=== PATIENT | female | born 1945 | race African-American/Black ===

== ENCOUNTER 2021-05-12 14:50 | Inpatient (IN) | payer OTHER, MEDICAID ==
[~2021-05-12] VITALS: Ht 317.5 cm; Wt 54.0 kg
[2021-05-12] MEDS ORDERED: IOHEXOL-350 100 ML BOTTLE ONE (16:46)
[2021-05-12 16:47] LABS: BASOPHILS % 0.8 % (0.0-2.0); EOSINOPHILS % 4.6 % (0.0-5.0); HEMATOCRIT. 35.8 % (36.0-48.0); HEMOGLOBIN. 11.6 g/dL (12.0-16.0); MEAN CORPUSCULAR HEMOGLOBIN 27.9 pg (28.0-32.0); MEAN CORPUSCULAR VOLUME 85.7 fL (81.0-99.0); MEAN PLATELET VOLUME 7.6 fl (7.4-10.4); MONOCYTES % 7.1 % (2.0-8.0); NEUTROPHILS % 43.5 % (40.0-76.0); PLATELET 284 x1000/uL (130-400); RED BLOOD CELL COUNT 4.17 mill/uL (4.2-5.4); RED CELL DISTRIBUTION WIDTH 14.5 % (11.6-14.6)
[2021-05-12 16:52] LABS: CHLORIDE 105 mEq/L (98-107)
[2021-05-12 16:57] LABS: ETHANOL BLOOD < 10 mg/dL
[2021-05-12] MEDS ORDERED: ASPIRIN 325MG EC TABLET PO NR (19:15)
[2021-05-12] MEDS ORDERED: ZOLPIDEM TARTRATE 5MG TABLET PO ONE (22:30)
[2021-05-12 22:56] LABS: CLARITY URINE CLEAR (CLEAR); COLOR URINE YELLOW (YELLOW); KETONES URINE NEGATIVE (NEGATIVE); LEUKOCYTE ESTERASE URINE 1+ (NEGATIVE); NITRITE URINE NEGATIVE (NEGATIVE); OCCULT BLOOD URINE NEGATIVE (NEGATIVE); PROTEIN URINE NEGATIVE (NEGATIVE); SPECIFIC GRAVITY URINE 1.084 (1.005-1.030); UROBILINOGEN URINE 0.2 E.U./dL (0.2-1.0)
[2021-05-12 23:09] LABS: *AMPHETAMINES SCREEN URINE NEGATIVE (NEGATIVE); *BARBITURATES SCREEN URINE NEGATIVE (NEGATIVE); *BENZODIAZEPINES SCREEN URINE NEGATIVE (NEGATIVE); *COCAINE SCREEN URINE NEGATIVE (NEGATIVE)
[2021-05-12 23:10] LABS: CANNABINOID URINE SCREEN NEGATIVE (NEGATIVE); METHADONE URINE SCREEN NEGATIVE (NEGATIVE); OPIATES URINE SCREEN NEGATIVE (NEGATIVE); PHENCYCLIDINE URINE SCREEN NEGATIVE (NEGATIVE)
[2021-05-12] MEDS ORDERED: TIZA4TAB5 PO (23:47)
[2021-05-12] MEDS ORDERED: ESZO3TAB40 PO (23:47)
[2021-05-12] MEDS ORDERED: QUET100T34 PO (23:47)
[2021-05-12] MEDS ORDERED: OXCA150T29 PO (23:47)
[2021-05-12] MEDS ORDERED: SERT-422 PO (23:47)
[2021-05-13 01:29] VITALS: BP 139/75
[2021-05-13] MEDS ORDERED: CLONIDINE 0.1MG TABLET PO PRN (03:00)
[2021-05-13] MEDS ORDERED: ZOLPIDEM TARTRATE 5MG TABLET PO PRN ×3 (03:00→03:22)
[2021-05-13] MEDS ORDERED: ACETAMINOPHEN 325MG TABLET PO PRN (03:00)
[2021-05-13] MEDS ORDERED: TIZANIDINE HCL 2MG TABLET PO PRN (03:00)
[2021-05-13] MEDS ORDERED: ENOXAPARIN 40MG/0.4ML SYR SUBCUT SCH (09:00)
[2021-05-13] MEDS ORDERED: SERTRALINE HCL 50MG TABLET PO SCH (09:00)
[2021-05-13] MEDS ORDERED: ASPIRIN 81MG TABLET PO SCH (09:00)
[2021-05-13] MEDS ORDERED: QUETIAPINE FUMARATE 50MG TABLET PO SCH (21:00)
== END 2021-05-13 03:41 | disposition left against medical advice (07) | DRG 71 ==
LOC: ER 14:50 → 5WST 20:48 → EDBEDREQ 20:50 → EDBEDREQTM 20:50 → ENRESERV 21:49
PROVIDERS: ADMIT Internal Medicine; ATTEND Internal Medicine
DX: G93.41 Metabolic encephalopathy (principal); G45.9 Transient cerebral ischemic attack, unspecified; I10 Essential (primary) hypertension; Z53.29 Procedure and treatment not carried out because of patient's decision for other reasons; Z20.822 Contact with and (suspected) exposure to COVID-19; E78.5 Hyperlipidemia, unspecified; E78.00 Pure hypercholesterolemia, unspecified; Z86.73 Personal history of transient ischemic attack (TIA), and cerebral infarction without residual deficits; Z88.0 Allergy status to penicillin
CPT/HCPCS: 36415; 70496; 70498; 71045; 80053; 80305; 80320; 81003; 84484; 85025; 87426; 93005; 99285; Q9967; G0480